=== PATIENT | male | born 1985 | race Caucasian/White ===

== ENCOUNTER 2021-09-12 12:30 | Emergency (ER) | payer OTHER ==
[2021-09-12 16:48] LABS: HEMOGLOBIN 15.2 gm/dl (14.0-17.5); RED BLOOD COUNT 5.06 M/UL (4.20-5.50); WHITE BLOOD COUNT 6.4 K/UL (4.5-11.0)
[2021-09-12 17:22] LABS: BUN/CREATININE RATIO 8 (0-10)
[2021-09-12] MEDS ORDERED: ASPIRIN CHEWABL81 MG PO (17:51)
== END 2021-09-12 18:45 | disposition home or self-care (01) ==
LOC: ER1 12:30
PROVIDERS: Emergency Medicine
DX: R07.9 Chest pain, unspecified (principal); F17.200 Nicotine dependence, unspecified, uncomplicated
CPT/HCPCS: 71045; 80053; 82550; 82553; 84484; 85025; 85379; 93005; 99285